=== PATIENT | female | born 1985 | race Caucasian/White ===

== ENCOUNTER 2017-11-12 04:19 | Emergency (ER) | payer OTHER ==
[~2017-11-12] VITALS: Ht 162.6 cm; Wt 65.0 kg
[~2017-11-12 04:19] MED LIST: FIORIC PO; MAXA5TAB2 PO; ZOFR4TAB3 SL
[2017-11-12 04:21] VITALS: BP 130/82; PULSE 115; RESP 16; TEMP 97.8; O2SAT 98
[2017-11-12] MEDS ORDERED: PRED20 PO (04:34)
[2017-11-12] MEDS ORDERED: SPRI28TA PO (04:34)
--- NOTE | 2017-11-12 04:40 | PD ---
HPI Chief Complaint: Headache Time Seen by Provider: 04:29 Travel History International Travel<30 days: No Contact w/Intl Traveler<30days: No Traveled to known affect area: No History of Present Illness HPI 32-year-old female complains of migraine headache. Patient states that headache started about 3 hours prior coming to the emergency room. Patient states that she took Maxalt at home without relief. Patient states that headache is throbbing headache diffuse over the head. Patient complains of photophobia. Patient and nausea vomiting with the headache. Patient denies any neck pain. Patient denies any recent head injury. Patient denies any fever chills. Patient denies any focal weakness or numbness of extremity. Patient states that headache is typical migraine headache she had in the past. PFSH Past Medical History Asthma: Yes Diminished Hearing: No Headaches: Yes (MIGRAINES) Migraines: Yes Tetanus Vaccination: Unknown Influenza Vaccination: No ?: Not LMP: 11/03/17 Past Surgical History Surgical History: No Previous Surgery Social History Alcohol Use: No Tobacco Use: No Substance Use: No Allergies-Medications (Allergen,Severity, Reaction): Coded Allergies: penicillin G (Unverified Allergy, Severe, 11/12/17) Reported Meds & Prescriptions Reported Meds & Active Scripts Active Reported Prednisone 20 Mg Tab 45 Mg PO DAILY Take 40 mg (2 tablets) daily for 5 days Sprintec 28 (Norgestimate-Ethinyl Estradiol) 0.25-35 mg-Mcg Tab 1 Tab PO DAILY Review of Systems General / Constitutional: No: Fever Eyes: No: Visual changes HENT: Positive: Headaches Cardiovascular: No: Chest Pain or Discomfort Respiratory: No: Shortness of Breath Gastrointestinal: No: Abdominal Pain Genitourinary: No: Dysuria Musculoskeletal: No: Pain Skin: No Rash Neurologic: No: Weakness Psychiatric: No: Depression Endocrine: No: Polydipsia Hematologic/Lymphatic: No: Easy Bruising Physical Exam Narrative GENERAL: Well-nourished, well-developed patient. SKIN: Focused skin assessment warm/dry. HEAD: Normocephalic. EYES: No scleral icterus. No injection or drainage. NECK: Supple, trachea midline. No JVD or lymphadenopathy. No meningismus CARDIOVASCULAR: Regular rate and rhythm without murmurs, gallops, or rubs. RESPIRATORY: Breath sounds equal bilaterally. No accessory muscle use. GASTROINTESTINAL: Abdomen soft, non-tender, nondistended. MUSCULOSKELETAL: No cyanosis, or edema. BACK: Nontender without obvious deformity. No CVA tenderness. Neurologic exam: Patient's awake and alert oriented 3. No obvious focal neurological deficit. Data Data Last Documented VS Vital Signs Date Time Temp Pulse Resp B/P (MAP) Pulse Ox O2 Delivery O2 Flow Rate FiO2 11/12/17 04:21 97.8 115 16 130/82 (98) 98 Room Air Orders Orders Sodium Chlorid 0.9% 500 Ml Inj (Ns 500 M (11/12/17 04:45) Ketorolac Inj (Toradol Inj) (11/12/17 04:45) Diphenhydramine Inj (Benadryl Inj) (11/12/17 04:45) Ondansetron Inj (Zofran Inj) (11/12/17 04:45) MDM Medical Decision Making Medical Screen Exam Complete: Yes Emergency Medical Condition: Yes Differential Diagnosis Differential diagnosis including migraine headache, tension headache, cluster headache, encephalitis, subarachnoid hemorrhage. Narrative Course 32-year-old female with headache. History of migraine. Normal saline solution 500 cc IV bolus. Toradol 30 mg IV. Zofran 4 mg IV. Benadryl 50 mg IV. 5:40 AM. Patient's feeling much better. Diagnosis Primary Impression: Cephalgia Qualified Codes: R51 - Headache Patient Instructions: General Instructions Additional Instructions: Follow-up with personal physician and neurologist. Med/Other Pt SpecificInfo: Prescription(s) given Scripts Tramadol (Ultram) 50 Mg Tab 50 MG PO Q6H Y for HEADACHE, #20 TAB 0 Refills Prov: Khang Conklin MD 11/12/17 Ondansetron Odt (Zofran Odt) 4 Mg Tab 4 MG SL Q6HR Y for Nausea/Vomiting, #12 TAB 0 Refills Prov: Khang Conklin MD 11/12/17 Owercyzelr-Heagkcsofamoc-Mgzdgzyf (Fioricet) 50-300-40 Mg Cap 1-2 CAP PO Q6H Y for HEADACHE, #30 CAP 0 Refills Prov: Khang Conklin MD 11/12/17 Disposition: 01 DISCHARGE HOME Condition: Stable Khang Conklin MD Nov 12, 2017 04:40
[2017-11-12] MEDS ORDERED: SODIUM CHLORID 0.9% 500 ML INJ 500 ML IV ONE (04:45)
[2017-11-12] MEDS ORDERED: KETOROLAC TROMETHAMINE 30 MG/ML (IVP) VIAL IV PUSH ONE (04:45)
[2017-11-12] MEDS ORDERED: ONDANSETRON HCL 4 MG/2 ML VIAL IV PUSH ONE (04:45)
[2017-11-12] MEDS ORDERED: diphenhydrAMINE HCL 50 MG/ML VIAL IV PUSH ONE (04:45)
[2017-11-12] MEDS ORDERED: TRAM50 PO (05:41)
[2017-11-12] MEDS ORDERED: ZOFR4TAB3 SL (05:41)
[2017-11-12] MEDS ORDERED: BUTA1CAP PO (05:41)
== END 2017-11-12 05:51 | disposition home or self-care (01) ==
LOC: NEPC 04:19
DX: R51 Headache (principal); R11.2 Nausea with vomiting, unspecified; J45.909 Unspecified asthma, uncomplicated; Z79.899 Other long term (current) drug therapy; Z88.0 Allergy status to penicillin
CPT/HCPCS: 96374; 96375; 99284; J1200; J1885; J2405; J7040